=== PATIENT | male | born 1960 | race Caucasian/White ===

== ENCOUNTER 2017-03-06 10:23 | Emergency (ER) | payer MEDICARE, MEDICAID ==
[2017-03-06 10:51] VITALS: BP 128/70
[2017-03-06] MEDS ORDERED: predniSONE TAB* 20 MG PO ONE (11:55)
[2017-03-06] MEDS ORDERED: LoraTADine TAB(NF) 10 MG TAB (AUTOSUB to CETIRIZINE) PO ONE (11:55)
[2017-03-06] MEDS ORDERED: Cetirizine* 10 MG TAB PO ONE (13:00)
[2017-03-06] MEDS ORDERED: Triamcinolone 0.5% OINT * 15 GM TUBE TOPICAL SCH (14:00)
--- NOTE | 2017-03-06 18:12 | ED ---
Skin Complaint - HPI Summary HPI Summary: PT brought in by senior care staff for a rash on Right lower leg, very red and inflamed which began yesterday and has progressively worsened. He has a history of cellulitis of the upper extremities. Denies known trauma. Denies contact exposure to any soaps, detergents, brush or oak or carmen. Multiple allergies. Has not been SOB or having chest pain per staff. Staff denies other complaints. Patient has had no fever, sweats or chills. - History of Current Complaint Chief Complaint: EDRashSkinAbscess Time Seen by Provider: 03/06/17 10:58 Stated Complaint: RT LEG COMPLAINT Hx Obtained From: Patient Onset/Duration: Started Hours Ago Skin Exposure Onset/Duration: Hours Ago Timing: Constant Onset Severity: Moderate Current Severity: Moderate Pain Intensity: 0 Pain Scale Used: FLACC (Peds Only) Skin Location: Discrete - right lower extremity Character: Pain, Redness, Raised Aggravating Symptom(s): Nothing Alleviating Symptom(s): Nothing - Allergy/Home Medications Allergies/Adverse Reactions: Allergies Allergy/AdvReac Type Severity Reaction Status Date / Time Chlorpromazine Allergy Rash Verified 03/27/15 12:23 Diazepam [From Valium] Allergy Rash Verified 03/27/15 12:23 Haloperidol [From Haldol] Allergy Rash Verified 03/27/15 12:23 [place] Allergy Rash Verified 03/27/15 12:23 Propranolol Allergy Rash Verified 03/27/15 12:23 thoridazine Allergy Unknown Unknown Uncoded 03/27/15 12:23 Reaction Details PMH/Surg Hx/FS Hx/Imm Hx Previously Healthy: Yes Endocrine/Hematology History: Reports: Hx Thyroid Disease Cardiovascular History: Reports: Hx Hypertension Psychiatric History: Reports: Hx of Violent Episodes Against Others - Immunization History Hx Pertussis Vaccination: No Immunizations Up to Date: Unable to Obtain/Confirm Infectious Disease History: Unable to Obtain/Confirm Infectious Disease History: Denies: Hx Clostridium Difficile, Hx Hepatitis, Hx Human Immunodeficiency Virus (HIV), Hx of Known/Suspected MRSA, Hx Shingles, Hx Tuberculosis, History Other Infectious Disease, Traveled Outside the [place] in Last 30 Days - Social History Occupation: Unemployed, Disabled Lives: Assisted Living Alcohol Use: None Hx Substance Use: No Substance Use Type: Reports: None Hx Tobacco Use: No Smoking Status (MU): Never Smoked Tobacco Review of Systems Constitutional: Negative Eyes: Negative Cardiovascular: Negative Respiratory: Negative Positive: no symptoms reported, see HPI Musculoskeletal: Negative Positive: Rash Neurological: Negative All Other Systems Reviewed And Are Negative: Yes Physical Exam Triage Information Reviewed: Yes Vital Signs On Initial Exam: Initial Vitals Temp Pulse Resp BP Pulse Ox 99.5 F 74 16 128/70 94 03/06/17 10:46 03/06/17 10:46 03/06/17 10:46 03/06/17 10:46 03/06/17 10:46 Vital Signs Reviewed: Yes Completion Of Physical Exam Limited Due To: Other - limited d/t mental capacity Appearance: Positive: Well-Appearing Skin: Positive: Other - raised erythematous plaque from knee to the ankle over the anterior parker Head/Face: Positive: Normal Head/Face Inspection Eyes: Positive: EOMI, DEVON, Conjunctiva Clear Neck: Positive: Supple, No Lymphadenopathy Respiratory/Lung Sounds: Positive: Clear to Auscultation, Breath Sounds Present Cardiovascular: Positive: Normal, Pulses are Symmetrical in both Upper and Lower Extremities Abdomen Description: Positive: Nontender, Soft Musculoskeletal: Positive: Normal, Strength/ROM Intact Neurological: Positive: Normal, Sensory/Motor Intact, Speech Normal Diagnostics - Vital Signs Vital Signs Temp Pulse Resp BP Pulse Ox 03/06/17 11:30 99.5 F 74 16 128/70 94 03/06/17 10:46 99.5 F 74 16 128/70 94 - Laboratory Lab Statement: Any lab studies that have been ordered have been reviewed, and results considered in the medical decision making process. Course/Dx - Course Course Of Treatment: raised erythematous plaque from knee to the ankle over the anterior parker. no known tick bite, allergy, contact with brush or carmen. Will treat with 6 days prednisone and triamcinalone cream. Encouraged benadryl at bedtime. Medications were reveiwed with staff. Encouarged to follow up with PCP or return to ED for worsening symptoms. Return precautions given. STaff understands and agrees with plan. Ok for discharge. - Differential Diagnoses - Skin Complaint Differential Diagnoses: Cellulitis, Drug Rash, Urticaria - Diagnoses Provider Diagnoses: Contact dermatitis Discharge - Discharge Plan Condition: Stable Disposition: HOME Prescriptions: Loratadine & Pseudoephedrine [Claritin-D 12 Hour] 1 tab PO DAILY #12 tab Triamcinolone 0.5% CREAM(NF) [Triamcinolone 0.5% CREAM*] 1 applic TOPICAL TID # 1 tube diPHENhydraMINE PO* [Benadryl PO 25 MG TAB*] 25 mg PO BEDTIME PRN #12 tab MDD 1 PRN Reason: Pain predniSONE TAB* [Deltasone TAB*] 50 mg PO DAILY #7 tab MDD 1 predniSONE TAB* [Deltasone TAB*] 50 mg PO DAILY #6 tab MDD 1 Patient Education Materials: Contact Dermatitis (ED), Cold Compress or Soak (ED ) Referrals: Adelfo LYN CAPTAIN WAITERMary [Primary Care Provider] - Additional Instructions: Follow up with your PCP If any symptoms become worse, or you develop a fever, return to ED immediately Benadryl at bedtime Claritin in the morning until symptoms resolve Prednisone in the morning x 6 days
== END 2017-03-06 12:34 | disposition home or self-care (01) ==
LOC: ED 10:23
DX: L25.9 Unspecified contact dermatitis, unspecified cause (principal); R21 Rash and other nonspecific skin eruption
CPT/HCPCS: 99282; A9270-GY; J7512

== ENCOUNTER 2018-08-25 16:10 | Emergency (ER) | payer MEDICARE, MEDICAID ==
--- NOTE | 2018-08-25 18:15 | ED ---
Head Injury - HPI Summary HPI Summary: 58 year old male presents with facial injury today. the [facility] where he lives said that they're were trying to position him and he stumbled and caught himself with his arms but then hit his face. He has contusion noted to his forehead and to his nose. Has abrasion noted to his forehead. the center states they did neuro checks for the 2 hours after the fall which happened at 6 AM and he was completely normal. caregiver states has been acting completely normal. While in the ED patient moved himself from the wheelchair onto the bed. He is not voicing any pain. the center is also concerned about his right toe and wants it looked at. no injury to the toe. No fevers. No vomiting. Nose did not bleed but has been having congestion. Is not on blood thinners. - History Of Current Complaint Chief Complaint: EDFacialInjury Stated Complaint: FALL/FACIAL INJURY Time Seen by Provider: 08/25/18 17:36 Pain Intensity: 0 - Allergies/Home Medications Allergies/Adverse Reactions: Allergies Allergy/AdvReac Type Severity Reaction Status Date / Time MS Chlorpromazine Allergy Rash Verified 03/27/15 12:23 [Chlorpromazine] MS Diazepam [From Valium] Allergy Rash Verified 03/27/15 12:23 [place] Haloperidol [From Haldol] Allergy Rash Verified 03/27/15 12:23 MS [place] [Orick] Allergy Rash Verified 03/27/15 12:23 [place] Propranolol [Propranolol] Allergy Rash Verified 03/27/15 12:23 thoridazine Allergy Unknown Unknown Uncoded 03/27/15 12:23 Reaction Details PMH/Surg Hx/FS Hx/Imm Hx Endocrine/Hematology History: Reports: Hx Thyroid Disease Cardiovascular History: Reports: Hx Hypertension Psychiatric History: Reports: Hx of Violent Episodes Against Others Infectious Disease History: No Infectious Disease History: Denies: Hx Clostridium Difficile, Hx Hepatitis, Hx Human Immunodeficiency Virus (HIV), Hx of Known/Suspected MRSA, Hx Shingles, Hx Tuberculosis, History Other Infectious Disease, Traveled Outside the [place] in Last 30 Days - Social History Alcohol Use: None Hx Substance Use: No Substance Use Type: Reports: None Hx Tobacco Use: No Smoking Status (MU): Never Smoked Tobacco Review of Systems Negative: Fever Positive: Other - facial and nasal contusion Negative: Chest Pain Negative: Shortness Of Breath Positive: Other - abrasion All Other Systems Reviewed And Are Negative: Yes Physical Exam Triage Information Reviewed: Yes Vital Signs On Initial Exam: Initial Vitals Temp Pulse Resp BP Pulse Ox 98.6 F 78 17 149/84 99 08/25/18 16:30 08/25/18 16:30 08/25/18 16:30 08/25/18 16:30 08/25/18 16:30 Vital Signs Reviewed: Yes Appearance: Positive: Well-Appearing Skin: Positive: Warm, Dry, Other - abrasion to head Head/Face: Positive: Other - contusion noted to center of forehead, swelling to nose Eyes: Positive: EOMI, DEVON, Conjunctiva Clear ENT: Positive: Pharynx normal, TMs normal, Other - nares is swollen and may be off center Respiratory/Lung Sounds: Positive: Clear to Auscultation, Breath Sounds Present Cardiovascular: Positive: Normal, RRR Musculoskeletal: Positive: Normal, Strength/ROM Intact - right toe, Other - edema to dorsum of MCP with small abrasion, no warmth, appears most like pressure injury Neurological: Positive: Sensory/Motor Intact, CN Intact II-III - [place] Coma Scale Best Eye Response: 4 - Spontaneous Best Motor Response: 6 - Obeys Commands Best Verbal Response: 5 - Oriented Coma Scale Total: 15 Diagnostics - Vital Signs Vital Signs Temp Pulse Resp BP Pulse Ox 08/25/18 16:30 98.6 F 78 17 149/84 99 - Laboratory Lab Statement: Any lab studies that have been ordered have been reviewed, and results considered in the medical decision making process. Head Injury Course/Dx Course Of Treatment: 58 year old male presents with facial injury today. the [facility] where he lives said that they're were trying to position him and he stumbled and caught himself with his arms but then hit his face. He has contusion noted to his forehead and to his nose. Has abrasion noted to his forehead. the center states they did neuro checks for the 2 hours after the fall which happened at 6 AM and he was completely normal. caregiver states has been acting completely normal. While in the ED patient moved himself from the wheelchair onto the bed. He is not voicing any pain. the center is also concerned about his right toe and wants it looked at. no injury to the toe. No fevers. No vomiting. Nose did not bleed but has been having congestion. Is not on blood thinners. On exam has an abrasion noted to the forehead. Has contusion noted to forehead and nose is swollen. No step off. Cleaned abrasion. Extraocular movements intact. Nontender over forehead and nose. Swelling noted to nose and maybe a little bit off from midline. No septal hematoma. No neuro deficits noted. With patient having an normal neuro status and no signs of step-off on the forehead and will not get a CT at this time as would likely required sedation. Discuss as is currently able to breathe through nose even with some nasal congestion noted he can follow-up with ENT about the potential nasal fracture. warned if any change in mental status to return. has follow up with primary on Monday. right toe appears to have a pressure injury with small abrasion. no warmth to the area and does not appear cellulitic. told to cahnge shows or place more padding in shoes and to keep the area clean. - Diagnoses Differential Diagnosis/HQI/PQRI: Concussion Without LOC, Contusion, Intracranial Bleed, Nasal Fracture Provider Diagnoses: Facial contusion, Facial abrasion, Nasal injury, Pressure injury of skin of toe of right foot Discharge - Sign-Out/Discharge Documenting (check all that apply): Patient Departure - Discharge Plan Condition: Good Disposition: HOME Patient Education Materials: Facial Contusion (ED) Referrals: Mary Nieto RN [Primary Care Provider] - Jayson Grissom MD [Medical Doctor] - Additional Instructions: For cosmetic reason or if have issues with breathing can follow up with ENT about nasal injury as they can reduce the potential nasal fracture as need be keep abrasion clean place ice on the area Keep follow up with primary The big toe appears to be a pressure injury likely from shoes, provide more cushion in shoes or switch shoes, watch this area as can easily become infected , keep clean and apply bactrician Return to ED if develop any vomiting, change in mental status or any new or worsening symptoms - Billing Disposition and Condition Condition: GOOD Disposition: Home
[2018-08-25 18:44] VITALS: BP 133/78
== END 2018-08-25 18:42 | disposition home or self-care (01) ==
LOC: ED 16:10
DX: S00.33XA Contusion of nose, initial encounter (principal); S00.83XA Contusion of other part of head, initial encounter; S00.81XA Abrasion of other part of head, initial encounter; W18.30XA Fall on same level, unspecified, initial encounter; Y92.199 Unspecified place in other specified residential institution as the place of occurrence of the external cause; Z88.8 Allergy status to other drugs, medicaments and biological substances
CPT/HCPCS: 99281